=== PATIENT | male | born 1955 | race Caucasian/White ===

== ENCOUNTER 2020-05-25 11:44 | Inpatient (IN) | payer OTHER ==
[~2020-05-25] VITALS: Ht 167.6 cm; Wt 164.0 kg
[2020-05-25] MEDS ORDERED: Fruit C-100100 MG PO (12:06)
[2020-05-25] MEDS ORDERED: LORA10ER PO (12:09)
[2020-05-25] MEDS ORDERED: CALCA500S6 PO (12:09)
[2020-05-25] MEDS ORDERED: ERGO50000 PO (12:09)
[2020-05-25] MEDS ORDERED: DRIZALMA SPRINK60 MG PO (12:10)
[2020-05-25] MEDS ORDERED: TAMS.4ER PO (12:11)
[2020-05-25] MEDS ORDERED: PEPCID40 MG PO (12:11)
[2020-05-25] MEDS ORDERED: FERSU300 PO (12:11)
[2020-05-25] MEDS ORDERED: TRAM50 PO (12:11)
[2020-05-25 12:34] LABS: BASOPHILS ABSOLUTE AUTO 0.03 K/mm3 (0.00-0.23); BASOPHILS PERCENT AUTO 1 % (0-2); EOSINOPHILS ABSOLUTE AUTO 0.07 K/mm3 (0.00-0.68); EOSINOPHILS PERCENT AUTO 1 % (0-6); Hematocrit 38.8 % (37.0-53.0); Hemoglobin 11.9 g/dL (13.5-17.5); IMMATURE GRAN ABSOLUTE AUTO 0.01 K/mm3 (0.00-0.10); IMMATURE GRAN PERCENT AUTO 0 % (0-1); LYMPHOCYTES ABSOLUTE AUTO 1.06 K/mm3 (0.84-5.20); LYMPHOCYTES PERCENT AUTO 18 % (21-46); MONOCYTES ABSOLUTE AUTO 0.36 K/mm3 (0.16-1.47); MONOCYTES PERCENT AUTO 6 % (4-13); Mean Corpuscular HGB 29.3 pg (26.0-34.0); Mean Corpuscular HGB Conc 30.7 g/dL (31.5-36.5); Mean Corpuscular Volume 96 fL (80-100); Mean Platelet Volume 11.9 fL (9.1-12.4); NEUTROPHILS ABSOLUTE AUTO 4.34 K/mm3 (1.96-9.15); NEUTROPHILS PERCENT AUTO 74 % (41-73); Platelet Count 182 K/mm3 (150-400); RDW Coefficient Variation 15.6 % (11.7-14.2); RDW Standard Deviation 54.2 fL (35.1-46.3); Red Blood Cell Count 4.06 M/mm3 (4.30-5.90); White Blood Cell Count 5.87 K/mm3 (4.00-11.30)
[2020-05-25 12:54] LABS: Troponin I <0.015 ng/mL (0.000-0.040)
[2020-05-25 12:55] LABS: Alanine Aminotransfer (ALT/SGP 26 U/L (12-78); Albumin, Blood 3.6 g/dL (3.4-5.0); Albumin/Globulin Ratio 1.1 (0.8-1.8); Alk Phos 153 U/L (50-136); Anion Gap 6 mmol/L (6-16); Aspartate Aminotrans (AST/SGOT 22 U/L (12-37); Bilirubin, Total 0.9 mg/dL (0.1-1.0); Blood Urea Nitrogen 17 mg/dL (8-24); Bun/Creatinine Ratio 15.5 (12.0-20.0); CO2, Blood 20 mmol/L (21-32); Calcium, Blood 8.7 mg/dL (8.5-10.1); Chloride, Blood 117 mmol/L (98-108); Globulin, Blood 3.4 g/dL (2.2-4.0); Glomerular Filtration Rate >60 (60-); Glucose, Blood 151 mg/dL (70-99); Potassium, Blood 4.4 mmol/L (3.5-5.5); Sodium, Blood 143 mmol/L (136-145)
[2020-05-25] MEDS ORDERED: PREG25 PO (14:25)
--- NOTE | 2020-05-25 15:21 | NUR ---
PT ARRIVES TO PCU WITH HR OF 150-170s ON TELEMETRY. SANJAY ANTONIO NOTIFIED, VERBAL ORDER RECEIVED TO INCREASE CARDIZEM GTT TO 20. PRIMARY RN VIKTORIYA NOTIFIED, SHAYE DYER WOULD LIKE HER TO CALL BACK AND UPDATE HER.
--- NOTE | 2020-05-25 16:21 | NUR ---
CARDIZEM STOPPED AT THIS TIME PER TELEPHONE ORDER FROM AMY FOSTER. VERBAL ORDER FOR 5MG IV LOPRESSOR [id number] FOR HR>120.
--- NOTE | 2020-05-25 17:29 | NUR ---
SHIFT SUMMARY; BROUGHT TO PCU VIA GURNEY FROM ED. TRANSFERS FROM GURNEY TO BED INDEPENDANTLY. A/A/OX4. HR 170 ON ARRIVAL WITH CARDIZEM DRIP AT 15ML/HR. CALLED ADMITTING PROVIDER WITH UPDATE OF HR. VERBAL ORDERS GIVEN. LOPRESSOR GIVEN WITH GOOD RESPONSE. DUSTIN DC'D PER PROVIDER. ECHO COMPELTE, INDEPENDANT IN ROOM. WILL CONTINUE TO MONITOR AND TREAT UNTIL CHANGE OF SHIFT.
[2020-05-26 01:08] LABS: BASOPHILS ABSOLUTE AUTO 0.02 K/mm3 (0.00-0.23); BASOPHILS PERCENT AUTO 0 % (0-2); EOSINOPHILS ABSOLUTE AUTO 0.12 K/mm3 (0.00-0.68); EOSINOPHILS PERCENT AUTO 2 % (0-6); Hemoglobin 11.4 g/dL (13.5-17.5); IMMATURE GRAN ABSOLUTE AUTO 0.02 K/mm3 (0.00-0.10); IMMATURE GRAN PERCENT AUTO 0 % (0-1); LYMPHOCYTES ABSOLUTE AUTO 1.51 K/mm3 (0.84-5.20); LYMPHOCYTES PERCENT AUTO 21 % (21-46); MONOCYTES PERCENT AUTO 7 % (4-13); Mean Corpuscular HGB 28.8 pg (26.0-34.0); Mean Corpuscular Volume 96 fL (80-100); Mean Platelet Volume 12.2 fL (9.1-12.4); NEUTROPHILS ABSOLUTE AUTO 4.89 K/mm3 (1.96-9.15); NEUTROPHILS PERCENT AUTO 69 % (41-73); Platelet Count 197 K/mm3 (150-400); RDW Coefficient Variation 15.5 % (11.7-14.2); RDW Standard Deviation 54.9 fL (35.1-46.3); Red Blood Cell Count 3.96 M/mm3 (4.30-5.90); White Blood Cell Count 7.06 K/mm3 (4.00-11.30)
[2020-05-26 01:30] LABS: Alanine Aminotransfer (ALT/SGP 24 U/L (12-78); Albumin, Blood 3.4 g/dL (3.4-5.0); Albumin/Globulin Ratio 1.1 (0.8-1.8); Alk Phos 139 U/L (50-136); Anion Gap 5 mmol/L (6-16); Aspartate Aminotrans (AST/SGOT 13 U/L (12-37); Bilirubin, Total 0.5 mg/dL (0.1-1.0); Blood Urea Nitrogen 17 mg/dL (8-24); Bun/Creatinine Ratio 13.8 (12.0-20.0); CO2, Blood 24 mmol/L (21-32); Calcium, Blood 8.7 mg/dL (8.5-10.1); Chloride, Blood 116 mmol/L (98-108); Creatinine, Blood 1.23 mg/dL (0.60-1.20); Globulin, Blood 3.2 g/dL (2.2-4.0); Glomerular Filtration Rate >60 (60-); Glucose, Blood 126 mg/dL (70-99); Magnesium, Blood 1.8 mg/dL (1.6-2.4); Potassium, Blood 4.2 mmol/L (3.5-5.5); Sodium, Blood 145 mmol/L (136-145); Total Protein, Blood 6.6 g/dL (6.4-8.2)
--- NOTE | 2020-05-26 03:51 | NUR ---
WEB SITE ADMINISTRATOR SUMMARY PT WAS AXO X4. IV LOPRESSOR GIVEN X2 FOR SUSTAINED HR >120. TELE REMAINED AFIB 90-120 FOR MOST OF THE SHIFT AFTER RECIEVING SECOND DOSE OF IV LOPRESSOR. PT'S HR GOES INTO THE 150'S W AMBULATION. PT DENIES ANY CP OR SOB EVEN WHILE AMBULATING. PT REPORTS FEELING MUCH BETTER THAN WHEN HE CAME TO THE ER. VSS AND BP TOLERATING THE LOPRESSOR WELL. PT SLEEPING W HOME CPAP ON, O2 SATS >92% ON CPAP. WCTM.
[2020-05-26 13:25] LABS: Influenza A, PCR NEGATIVE (NEGATIVE); Influenza B, PCR NEGATIVE (NEGATIVE); Resp Syncytial Virus, PCR NEGATIVE (NEGATIVE); SARS-Cov-2 (COVID-19) PCR, MMC NEGATIVE (NEGATIVE)
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
--- NOTE | 2020-05-26 16:58 | NUR ---
PT WAKING UP TALKING
--- NOTE | 2020-05-26 17:08 | NUR ---
PT ALERT AND TALKING TO NURSE, STATES HE FEELS READY TO GO BACK TO HIS ROOM IN PCU
--- NOTE | 2020-05-27 05:42 | NUR ---
shift summary pt rested well though night. alert and oriented, able to make needs known. cooperative with plan of care. tele afib - 100's - amio gtt running at half rate per emar. improvement with hr. sats >90% on room air. independent in room, voiding adequately, no bm. pain in hips - see emar. vss. call light within reach, bed in lowest position. will contiue to monitor.
--- NOTE | 2020-05-27 08:00 | NUR ---
pt laying in bed awake a/ox3, pleasant and cooperative with care, follows commands well, denies pain or sob, states he is feeling much better, cardiology in to see him, starting him on oral amio, will stop gtt, lungs are clear t/o, resp even and unlabored, no cough noted, on r/a, hrirr, tele in place running afib in the 80's, 3+ pitting edema noted to b/l le, ppp+2, cap refill <3sec, vs stable, afebrile, iv site is clear and patent, infusing amio gtt, a bit pink above iv site, this will stop when he is started on oral amio, btx4, abd flat soft nontender, voids without diff, skin c/w/d, janine johnson, call light in reach.
[2020-05-27 09:04] LABS: Hematocrit 38.3 % (37.0-53.0); Hemoglobin 11.4 g/dL (13.5-17.5); Mean Corpuscular HGB 28.7 pg (26.0-34.0); Mean Corpuscular HGB Conc 29.8 g/dL (31.5-36.5); Mean Corpuscular Volume 97 fL (80-100); Mean Platelet Volume 12.3 fL (9.1-12.4); Platelet Count 188 K/mm3 (150-400); RDW Coefficient Variation 15.7 % (11.7-14.2); RDW Standard Deviation 54.7 fL (35.1-46.3); Red Blood Cell Count 3.97 M/mm3 (4.30-5.90); White Blood Cell Count 6.57 K/mm3 (4.00-11.30)
[2020-05-27 09:40] LABS: Albumin, Blood 3.3 g/dL (3.4-5.0); Albumin/Globulin Ratio 1.1 (0.8-1.8); Bilirubin, Total 0.5 mg/dL (0.1-1.0); Bun/Creatinine Ratio 16.3 (12.0-20.0); Calcium, Blood 8.7 mg/dL (8.5-10.1); Creatinine, Blood 1.41 mg/dL (0.60-1.20); Potassium, Blood 3.9 mmol/L (3.5-5.5); Total Protein, Blood 6.3 g/dL (6.4-8.2)
--- NOTE | 2020-05-27 16:04 | NUR ---
pt sitting in the chair most of the day, no complaints, states he feels good. will be going to medical floor at this time, report was given to frederick, will go via [facility] with all belongings with library services coordinator in attendence.
--- NOTE | 2020-05-27 17:27 | NUR ---
SUMMARY PT TRANSFERRED UP FROM PCU, ORIENTED PT TO ROOM AND CALL SYSTEM, PT IS ALERT AND ORIENTED, INDEPENDENT IN THE ROOM, PT DENIES ANY CHEST PAIN OR SOB, CONFIRMED WITH TELEMETRY PT TRANSFER, NO COMPLAINTS, WILL CONT TO MONITOR
--- NOTE | 2020-05-28 06:06 | NUR ---
PT IS A/O ZARA SHINE PT, IND, USES CPAP FROM HOME, TELE MONITOR IN AFIB. RECENT HX OF CARDIOVERSION THIS ADMIT. POSSIBLE D/C TODAY.
[2020-05-28 08:23] LABS: Hemoglobin 11.3 g/dL (13.5-17.5); Mean Corpuscular HGB 29.1 pg (26.0-34.0); Mean Corpuscular HGB Conc 30.5 g/dL (31.5-36.5); Mean Corpuscular Volume 95 fL (80-100); Mean Platelet Volume 11.9 fL (9.1-12.4); Platelet Count 172 K/mm3 (150-400); RDW Coefficient Variation 15.6 % (11.7-14.2); RDW Standard Deviation 54.5 fL (35.1-46.3); Red Blood Cell Count 3.88 M/mm3 (4.30-5.90)
[2020-05-28 09:01] LABS: Alanine Aminotransfer (ALT/SGP 23 U/L (12-78); Albumin, Blood 3.2 g/dL (3.4-5.0); Albumin/Globulin Ratio 1.1 (0.8-1.8); Alk Phos 137 U/L (50-136); Anion Gap 5 mmol/L (6-16); Aspartate Aminotrans (AST/SGOT 14 U/L (12-37); Bilirubin, Total 0.5 mg/dL (0.1-1.0); Blood Urea Nitrogen 21 mg/dL (8-24); Bun/Creatinine Ratio 17.4 (12.0-20.0); CO2, Blood 25 mmol/L (21-32); Calcium, Blood 8.4 mg/dL (8.5-10.1); Chloride, Blood 112 mmol/L (98-108); Creatinine, Blood 1.21 mg/dL (0.60-1.20); Globulin, Blood 2.8 g/dL (2.2-4.0); Glomerular Filtration Rate >60 (60-); Glucose, Blood 115 mg/dL (70-99); Potassium, Blood 3.8 mmol/L (3.5-5.5); Sodium, Blood 142 mmol/L (136-145)
[2020-05-28] MEDS ORDERED: LISI5 PO (15:02)
[2020-05-28] MEDS ORDERED: PACERONE400 M3 PO (15:02)
[2020-05-28] MEDS ORDERED: METO50ER PO (15:03)
[2020-05-28] MEDS ORDERED: XARELTO20 MG PO (15:03)
[2020-05-28] MEDS ORDERED: Amiodarone HCl200 MG PO (15:05)
[2020-05-28] MEDS ORDERED: FURO40 PO (15:05)
[2020-05-28] MEDS ORDERED: SPIR25 PO (15:06)
--- NOTE | 2020-05-28 16:00 | NUR ---
PATIENT DISCHARGE: PATIENT DISCHARGED TO HOME THIS SHIFT. MEDICATION RECONCILIATION COMPLETED; MED LIST FAXED TO [facility]. DISCHARGE EDUCATION COMPLETED WITH PATIENT. PATIENT TRANSPORTED TO EXIT BY [facility] STAFF WITH WHEELCHAIR AT 1540. PATIENT DEPARTED [facility] VIA PRIVATE AUTO.
== END 2020-05-28 16:44 | disposition home or self-care (01) | DRG 308 ==
LOC: ER 11:44 → MEDS 13:47 → PCU 13:47 → MEDS 05-27 16:28
PROVIDERS: Emergency Medicine; Internal Medicine; Internal Medicine Interventional Cardiology; Nurse Practitioner Acute Care; ADMIT Internal Medicine
PROC: 5A2204Z Restoration of Cardiac Rhythm, Single (ICD-10-PCS; principal; 2020-05-26)
DX: I48.0 Paroxysmal atrial fibrillation (principal); I50.21 Acute systolic (congestive) heart failure; Z68.43 Body mass index [BMI] 50.0-59.9, adult; Z66 Do not resuscitate; Z20.822 Contact with and (suspected) exposure to COVID-19; G47.33 Obstructive sleep apnea (adult) (pediatric); E66.01 Morbid (severe) obesity due to excess calories; I11.0 Hypertensive heart disease with heart failure; E11.9 Type 2 diabetes mellitus without complications; M79.7 Fibromyalgia; K21.9 Gastro-esophageal reflux disease without esophagitis; N40.0 Benign prostatic hyperplasia without lower urinary tract symptoms; D50.9 Iron deficiency anemia, unspecified; Z88.8 Allergy status to other drugs, medicaments and biological substances; Z79.899 Other long term (current) drug therapy; Z98.890 Other specified postprocedural states; Z98.84 Bariatric surgery status
CPT/HCPCS: 0241U; 36415; 71045; 80053; 83735; 83880; 84443; 84484; 85025; 85027; 92960; 93005; 93010; 93306; 93312; 93325; 93970; 94762; 96365; 96375; 96376; 99285-25; A9270; A9270-GY; J0282; J1940; J2704; J7030; J7060